=== PATIENT | female | born 1965 | race Caucasian/White ===

== ENCOUNTER 2017-12-24 15:21 | Outpatient (CLI) | payer OTHER ==
[~2017-12-24 15:21] MED LIST: Gadobenate Dimeglumine 529 MG/1 ML (20ML VIAL) ONE
--- NOTE | 2017-12-24 19:00 | MRI ---
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 Yearly followup. COMPARISON: 05/21/13 and 12/20/16. TECHNIQUE: Multiple sequences obtained in axial, sagittal, and coronal planes; both whole brain images and thin slices through the IAC's, pre and post IV injection of gadolinium-based contrast agent: 13 mL of Mult ihance. FINDINGS: There is a 6 x 3 x 3 mm homogeneously enhancing mass within the right internal auditory canal with it s lateral portion very close to the fundus of the IAC, and the medial aspect slightly lateral to the porus acusticus. This has not changed in size since 2012. There is no abnormal intra-axial enhancement, restricted diffusion, mass, or signal abnormality. Vent ricles are normal in size and configuration. No mass effect, midline shift or extra-axial fluid colle ction. No interval change overall. IMPRESSION: 1. The vestibular schwannoma (aka acoustic neuroma) in the right internal auditory canal is unch anged since 05/21/2013. 2. The brain is normal. MIREYA Roberts POS: [facility]
== END 2017-12-24 15:22 | disposition home or self-care (01) ==
LOC: TBSIIMAG 15:21
PROVIDERS: ATTEND Otolaryngology Otology & Neurotology
DX: D33.3 Benign neoplasm of cranial nerves (principal); H93.13 Tinnitus, bilateral
CPT/HCPCS: 70553; A9579

== ENCOUNTER 2018-08-01 08:12 | Outpatient (CLI) | payer OTHER ==
--- NOTE | 2018-08-05 12:00 | MMO ---
BILATERAL SCREENING MAMMOGRAM: COMPARISON: 07/31/17, 07/20/16, 06/23/15. FINDINGS: Bilateral MLO and CC views of the breasts show heterogeneously dense breast parenchyma, which may low er the sensitivity of mammography. Benign-appearing calcifications are scattered throughout both mireille asts. There is no evidence of suspicious mass, suspicious clustered microcalcifications, or area of architectural distortion. Interpretation of this mammogram was performed with the assistance of computer-aided detection. IMPRESSION: BI-RADS category 2 - benign findings. Annual screening mammography is recommended. BIRADS 2: Benign Finding(s) Routine annual screening mammography (for women over age 40) POS: [facility]
== END 2018-08-01 08:13 | disposition home or self-care (01) ==
LOC: SCSMAMMO 08:12
PROVIDERS: ATTEND Obstetrics & Gynecology
DX: Z12.31 Encounter for screening mammogram for malignant neoplasm of breast (principal)
CPT/HCPCS: 77067

== ENCOUNTER 2018-12-15 14:40 | Outpatient (CLI) | payer OTHER ==
--- NOTE | 2018-12-15 17:02 | MRI ---
MRI BRAIN WITH AND WITHOUT CONTRAST: MRI IAC WITH AND WITHOUT CONTRAST: INDICATIONS: Acoustic neuroma. FINDINGS: Stable small, enhancing mass involves the 7th-8th cranial nerve complex, on the right, with a transve rse dimension of 6 mm and an AP diameter of 3 mm, grossly stable. There is no evidence of ventriculomegaly, mass effect, midline shift, or acute intraaxial process. IMPRESSION: Stable right-sided vestibular schwannoma, 6 x 3 mm. POS: [facility]
== END 2018-12-15 14:41 | disposition home or self-care (01) ==
LOC: TBSIIMAG 14:40
PROVIDERS: ATTEND Specialist
DX: D33.3 Benign neoplasm of cranial nerves (principal)
CPT/HCPCS: 70553; A9579

== ENCOUNTER 2019-06-30 15:27 | Outpatient (CLI) | payer OTHER ==
--- NOTE | 2019-06-30 16:55 | MRI ---
MRI Cervical Spine WO Con History: M 52.12 radiculopathy Comparison: Cervical spine radiographs June 01, 2019 Findings: Cerebral tonsils terminate at the level of the foramen magnum. Cord signal is normal. No cervical adenopathy. No marrow infiltrative process. Likely multiple atypical hemangiomas of the cervical spine involving the C3, C7, and T1 vertebral bodies. Levels are as follows: C2/C3: Mild left uncinate process hypertrophy. Mild left neural foraminal narrowing. Moderate left an d mild right hypertrophic facet arthropathy. C3/C4: Mild degenerative disc space height loss. Mild uncinate process hypertrophy. Moderate left and mild right facet arthropathy. No significant neural foraminal or spinal canal narrowing. C4/C5: Circumferential disc osteophyte complex greatest in the left subfrontal zone. Low-grade facet arthropathy. Minimal effacement of the ventral CSF space. No significant right and mild left neural foraminal narrowing. C5/C6: Moderate generative disc space height loss. Large left subsequent foraminal and lateral recess disc osteophyte complex. Moderate to severe left and mild right neural foraminal narrowing. Mild bilateral facet arthropathy. C6/C7: Circumferential disc osteophyte complex greatest in the left lateral recess and subfrontal zon e. Moderate left and mild right neural foraminal narrowing. Minimal effacement of ventral CSF space. C7/T1: Normal disc. No neural foraminal or spinal canal narrowing. Impression: 1. Multilevel spondylosis as described, greatest at C5/C6. 2. Multiple T2 hyperintense foci within multiple cerebral vertebral body levels likely atypical heman giomas.
== END 2019-06-30 15:28 | disposition home or self-care (01) ==
LOC: TBSIIMAG 15:27
PROVIDERS: ATTEND Physician Assistant
DX: M47.22 Other spondylosis with radiculopathy, cervical region (principal); R93.7 Abnormal findings on diagnostic imaging of other parts of musculoskeletal system
CPT/HCPCS: 72141

== ENCOUNTER 2019-09-09 10:46 | Outpatient (CLI) | payer OTHER ==
--- NOTE | 2019-09-09 11:40 | MMO ---
Bilateral MAMMO Bilat Screen [facility]. CLINICAL HISTORY: Patient is 54 years old and is seen for screening. The patient has no family history of breast cancer. The patient has no personal history of cancer. The patient has a history of left Excisional Biopsy in 1981 - benign and bilateral Cyst Aspiration in [id number] - benign. VIEWS: The views performed were: bilateral craniocaudal with tomosynthesis and bilateral mediolateral oblique with tomosynthesis. FILMS COMPARED: The present examination has been compared to prior imaging studies performed at [facility] on 05/19/2014, 06/23/2015, 07/20/2016 and 07/31/2017. This study has been interpreted with the assistance of computer-aided detection. MAMMOGRAM FINDINGS: The breasts are extremely dense, which may lower the sensitivity of mammography. There are stable benign appearing calcifications seen in both breasts. There are no suspicious masses, suspicious calcifications, or new areas of architectural distortion. IMPRESSION: THERE IS NO MAMMOGRAPHIC EVIDENCE OF MALIGNANCY. A ROUTINE FOLLOW-UP MAMMOGRAM IN 1 YEAR IS RECOMMENDED. THE RESULTS OF THIS EXAM WERE SENT TO THE PATIENT. ACR BI-RADS Category 2 - Benign finding MAMMOGRAPHY NOTE: 1. A negative mammogram report should not delay a biopsy if a dominant of clinically suspicious mass is present. 2. Approximately 10% to 15% of breast cancers are not detected by mammography. 3. Adenosis and dense breasts may obscure an underlying neoplasm. Reported by: JACKLYN HANSON MD Electonically Signed: [id number]
== END 2019-09-09 10:47 | disposition home or self-care (01) ==
LOC: BICMAMMO 10:46
PROVIDERS: ATTEND Obstetrics & Gynecology
DX: Z12.31 Encounter for screening mammogram for malignant neoplasm of breast (principal); Z91.89 Other specified personal risk factors, not elsewhere classified
CPT/HCPCS: 77063; 77067

== ENCOUNTER 2019-12-22 14:59 | Outpatient (CLI) | payer OTHER ==
[2019-12-22] MEDS ORDERED: Magnevist 469MG/ML 20 ML VIAL ONE (15:34)
--- NOTE | 2019-12-22 16:13 | MRI ---
MRI of thebrain: 12/22/2019 COMPARISON:12/15/2018 HISTORY:Reevaluate vestibular schwannoma on the right, right-sided tinnitus TECHNIQUE: Multiplanar multisequence MR imaging of thebrain with and without contrast using and inter nal auditory canal protocol Findings:Arterial flow voids at the axial level of the skull base appear unremarkable on the T2-weigh susana imaging. The imaged paranasal sinuses and mastoid air cells appear grossly unremarkable. Regional bone marrow signal intensity is within normal limits. Thin section T2 imaging through the skull base demonstrates a mass within the right internal auditory canal measuring approximately 6 mm in transverse dimension. Normal T2 signal intensity is noted in the region of the cerebellopontine angle bilaterally, the left internal auditory canal, bilateral juanita hlea, bilateral vestibule, and the semicircular canals bilaterally. The diffusion weighted imaging demonstrates no evidence for acute infarction. There is avid enhancement of the mass within the right internal auditory canal measuring 6-7 mm in tr ansverse dimension on the postcontrast imaging, unchanged. No new lesion. All brain postcontrast imaging demonstrates no abnormal enhancement within the brain p arenchyma. IMPRESSION:Stable enhancing lesion within the right internal auditory canal most consistent with a st able right-sided vestibular schwannoma.
== END 2019-12-22 15:00 | disposition home or self-care (01) ==
LOC: TBSIIMAG 14:59
PROVIDERS: ATTEND Otolaryngology Otology & Neurotology
DX: R42 Dizziness and giddiness (principal); H83.8X1 Other specified diseases of right inner ear
CPT/HCPCS: 70553

== ENCOUNTER 2020-09-15 15:17 | Outpatient (CLI) | payer OTHER ==
--- NOTE | 2020-09-15 16:33 | MMO ---
Bilateral MAMMO Bilat Screen [facility]. CLINICAL HISTORY: Patient is 55 years old and is seen for screening. The patient has no family history of breast cancer. The patient has no personal history of cancer. The patient has a history of left Excisional Biopsy in 1981 - benign and bilateral Cyst Aspiration in [id number] - benign. VIEWS: The views performed were: bilateral craniocaudal with tomosynthesis and bilateral mediolateral oblique with tomosynthesis. FILMS COMPARED: The present examination has been compared to prior imaging studies performed at [facility] on 06/23/2015, 07/20/2016, 07/31/2017 and 09/09/2019. This study has been interpreted with the assistance of computer-aided detection. MAMMOGRAM FINDINGS: The breasts are extremely dense, which may lower the sensitivity of mammography. There are stable benign appearing calcifications seen in both breasts. There are no suspicious masses, suspicious calcifications, or new areas of architectural distortion. IMPRESSION: THERE IS NO MAMMOGRAPHIC EVIDENCE OF MALIGNANCY. A ROUTINE FOLLOW-UP MAMMOGRAM IN 1 YEAR IS RECOMMENDED. THE RESULTS OF THIS EXAM WERE SENT TO THE PATIENT. ACR BI-RADS Category 2 - Benign finding MAMMOGRAPHY NOTE: 1. A negative mammogram report should not delay a biopsy if a dominant of clinically suspicious mass is present. 2. Approximately 10% to 15% of breast cancers are not detected by mammography. 3. Adenosis and dense breasts may obscure an underlying neoplasm. Reported by: ADIN MOON MD Electonically Signed: [id number]
== END 2020-09-15 15:18 | disposition home or self-care (01) ==
LOC: BICMAMMO 15:17
PROVIDERS: ATTEND Obstetrics & Gynecology
DX: Z12.31 Encounter for screening mammogram for malignant neoplasm of breast (principal)
CPT/HCPCS: 77063; 77067

== ENCOUNTER 2021-09-25 08:51 | Outpatient (CLI) | payer OTHER | END 2021-09-25 08:52 | disposition home or self-care (01) | LOC: BICMAMMO 08:51 | PROVIDERS: ATTEND Physician Assistant | DX: Z12.31 Encounter for screening mammogram for malignant neoplasm of breast (principal) | CPT/HCPCS: 77063; 77067 ==

== ENCOUNTER 2021-12-13 13:39 | Outpatient (CLI) | payer OTHER ==
[~2021-12-13 13:39] MED LIST changes: -Gadobenate Dimeglumine 529 MG/1 ML (20ML VIAL) ONE; +Magnevist 469MG/ML 20 ML VIAL ONE
== END 2021-12-13 13:40 | disposition home or self-care (01) ==
LOC: TBSIIMAG 13:39
PROVIDERS: ATTEND Otolaryngology Otology & Neurotology
DX: D33.3 Benign neoplasm of cranial nerves (principal)
CPT/HCPCS: 70553; A9579

== ENCOUNTER 2023-04-04 14:03 | Outpatient (CLI) | payer OTHER | END 2023-04-04 14:04 | disposition home or self-care (01) | LOC: TBSIIMAG 14:03 | PROVIDERS: ATTEND Otolaryngology | DX: G52.9 Cranial nerve disorder, unspecified (principal); D70.4 Cyclic neutropenia | CPT/HCPCS: 70553 ==

== ENCOUNTER 2024-11-02 09:24 | Outpatient (CLI) | payer OTHER | END 2024-11-02 09:25 | disposition home or self-care (01) | LOC: BICRAD 09:24 | PROVIDERS: ATTEND Chiropractor | DX: R06.02 Shortness of breath (principal) | CPT/HCPCS: 71046 ==